=== PATIENT | female | born 1955 | race Caucasian/White ===

== ENCOUNTER 2020-11-23 17:38 | Emergency (ER) | payer MEDICARE, SELFPAY ==
[2020-11-23 17:39] VITALS: BP 177/100; PULSE 77; PULSE 82; RESP 16; TEMP 36.8; O2SAT 96; O2SAT 97; BMI 25.4
--- NOTE | 2020-11-23 18:20 | RAD_ITS ---
STUDY: X-RAY - RIGHT KNEE REASON FOR EXAM: Female, 65 years old. Pain after falling getting out of pool TECHNIQUE: 4 view(s) of the knee. COMPARISON: None. FINDINGS: Normal visualized distal femur. Normal visualized proximal tibia and fibula. Normal proximal tibiofibular articulation. Normal medial femorotibial compartment. Normal lateral femorotibial compartment. Normal patellofemoral articulation. There is a soft tissue prominence in the suprapatellar region suggesting a small volume joint effusion. The soft tissue structures are unremarkable. RAD/Knee 4 or More Views IMPRESSION: Small joint effusion. No demonstrated fracture. Electronically Signed: Eulailo Wray MD ([place]) at 18:42 EDT , Service support ,
--- NOTE | 2020-11-23 18:20 | ED.VIS.LOWEX ---
HPI History of Present Illness Chief Complaint: Lower Extremity Injury Informant: patient Narrative Narrative: Patient comes in with pain in the back of the knee and upper calf. She was in the pool playing ball. She jumped to push at the ball. She had sudden onset of sharp pain in the back of the knee and calf. It is hard for her to bear weight. No pain in the front. No chest pain or trouble breathing. No numbness tingling. She states her foot and toes to work just fine. Motion or pressing makes it worse. Fully extending the leg makes it worse. Weightbearing makes it worse. Ice rest makes it better. Patient denies any medical history. She denies any medications. She has no allergies. PFSH PFSH Home Medications tramadol 50 mg PO TID PRN 3 Days #10 tab 11/23/20 [Rx Last Taken Unknown] Allergy/AdvReac Type Severity Reaction Status Date / Time No Known Allergies Allergy Verified 11/23/20 17:42 Surgical History (Updated 11/23/20 @ 17:47 by Anjelica Abarca) History of hysterectomy Social History Smoking Status: Never smoker ROS ROS ED ROS Narrative Patient felt fine until this event occurred. Cardiovascular Cardiovascular: Denies chest pain Respiratory/Chest Respiratory/Chest: Denies cough or dyspnea Integumentary Denies rash Neurologic Neurologic: Denies paresthesias or weakness Hematologic/Lymphatic Hematologic/Lymphatic: Denies easy bleeding or easy bruising EXAM Physical Exam Const Vital Signs: 11/23/20 17:39 Temperature 98.2 F Temperature Source Temporal Pulse Rate 82 Respiratory Rate 16 Blood Pressure 177/100 H Blood Pressure Mean 125 Pulse Ox 97 Oxygen Delivery Method Room Air Positive well nourished and well developed General Appearance ED: well developed and NAD Chest Wall inspection of chest normal Resp normal respiratory effort Extremity Extremity Narrative: Patient has her knee partially bent with ice on the back. The knee itself has no effusion. No tenderness in the anterior lateral aspect of the knee. There is tenderness behind the knee and in the proximal calf. But there is no swelling. There is no cord. There is no distended veins. Achilles is fully intact by both palpation and Cartagena test. She has normal peripheral pulses and sensation. MDM MDM MDM Narrative Medical decision making narrative: X-rays of the knee show small effusion but no other process. Rechecked the patient. I will get her home on some meds for pain. Ice rest and follow-up. She already has crutches. I will give her referral to orthopedics. It certainly possible she has meniscal or other injury. However, her exam and history is most consistent with a plantaris tendon rupture. If she has continued pain, develop swelling chest pain or other issue she may need to be followed up for ultrasound. Radiography Diagnostic Testing: Radiology Impression Knee X-Ray 11/23/20 18:20 IMPRESSION: Small joint effusion. No demonstrated fracture. Electronically Signed: Eulalio Wray MD ([place]) at 18:42 EDT , Service support , Discharge Plan Triage Chief Complaint: Lower Extremity Injury ED Provider: Tung Guzman Dx/Rx/DC Orders Clinical Impression: Acute pain of right knee, Rupture of plantaris tendon Instructions: ED Knee Pain of Uncertain Cause Prescriptions: New tramadol 50 mg tablet 50 mg PO TID PRN (Reason: pain) 3 Days Qty: 10 RF: 0 Primary Care Provider: Wali Ariza Referrals: Wali Ariza MD [Primary Care Provider] - Jan Dee DO [STAFF PHYSICIAN] - 3-5 Days if not improving Disposition Disposition: Home, Self Care
== END 2020-11-23 19:07 | disposition home or self-care (01) ==
PROVIDERS: Emergency Provider Emergency Medicine; PCP Family Medicine
DX: S86.111A Strain of other muscle(s) and tendon(s) of posterior muscle group at lower leg level, right leg, initial encounter (principal); M25.561 Pain in right knee; X58.XXXA Exposure to other specified factors, initial encounter; Y93.89 Activity, other specified; Y92.34 Swimming pool (public) as the place of occurrence of the external cause; Y99.8 Other external cause status
CPT/HCPCS: 73564; 99282

== ENCOUNTER 2021-06-26 15:48 | Emergency (ER) | payer MEDICARE, SELFPAY ==
[2021-06-26 15:49] VITALS: BP 198/105; PULSE 88; RESP 16; TEMP 35.8; O2SAT 96; BMI 24.7
--- NOTE | 2021-06-26 16:49 | RAD_ITS ---
STUDY: X-RAY - LEFT KNEE REASON FOR EXAM: Female, 66 years old. pain twisted TECHNIQUE: 4 view(s) of the knee. COMPARISON: None. FINDINGS: Normal visualized distal femur. Normal visualized proximal tibia and fibula. Normal proximal tibiofibular articulation. There is no demonstrated fracture. Normal medial femorotibial compartment. Normal lateral femorotibial compartment. Normal patellofemoral articulation. There is no demonstrated joint effusion. The soft tissue structures are unremarkable. RAD/Knee 4 or More Views IMPRESSION: Normal x-ray examination of the knee. Electronically Signed: Chevy Tinajero MD at 18:14 EST ,
--- NOTE | 2021-06-26 19:16 | ED.VIS.LOWEX ---
HPI History of Present Illness Chief Complaint: Lower Extremity Injury Informant: patient Narrative Narrative: This patient slipped letting her dog out today. She slipped and landed firmly on her left foot. She felt something pop in the back of her left calf. She has pain in the proximal posterior calf on the left. She can move the foot up and down but it is painful. No chest pain trouble breathing. She never fell to the ground or hit her head. She is not on any medications at this time. She has not been on any steroids or fluoroquinolones. Rest makes it better and moving the foot or pressing on the calf makes it worse. [facility] Medical History Knee injury Home Medications NK 06/26/21 [History Last Taken Unknown] Allergy/AdvReac Type Severity Reaction Status Date / Time No Known Allergies Allergy Verified 06/26/21 15:49 Surgical History History of hysterectomy Social History Smoking Status: Never smoker ROS ROS ED Constitutional Constitutional ED: Denies fever(s) Gastrointestinal Gastrointestinal: Denies nausea or vomiting Musculoskeletal Musculoskeletal: Reports other Details: See history of present illness ; Denies back pain or neck pain Integumentary Denies Abrasions or rash Neurologic Neurologic: Denies paresthesias or weakness Hematologic/Lymphatic Hematologic/Lymphatic: Denies easy bleeding or easy bruising Allergic/Immunologic Allergic/Immunologic ED: Denies urticaria EXAM Physical Exam Const Vital Signs: 06/26/21 15:49 Temperature 96.4 F L Temperature Source Temporal Pulse Rate 88 Respiratory Rate 16 Blood Pressure 198/105 H Blood Pressure Mean 136 Pulse Ox 96 Oxygen Delivery Method Room Air Positive well nourished and well developed General Appearance ED: well developed and NAD HEENT normocephalic Resp normal respiratory effort Back/Spine Cervical Spine: Negative for cervical spine tenderness Thoracic Spine / Upper Back: Negative for thoracic spinal tenderness Lumbar Spine / Lower Back: Negative for lumbar spinal tenderness Extremity Extremity Narrative: The extremity looks normal. There is no asymmetry of size. She does have tenderness at the proximal aspect of the left calf. But no rash. Knee is not involved. There is no effusion. Achilles is actually fully intact to palpation and Cartagena test. Patient can plantarflex the left foot but this causes some discomfort. She does appear to have intact gastroc both medial and lateral heads. Neuro oriented x3 Sensorium / Orientation: alert Psych mental status grossly normal Skin Rashes: no rashes MDM MDM MDM Narrative Medical decision making narrative: Patient's x-ray shows no acute process. This was done per protocol. But she really has no bony tenderness or pain. Her exam and history is consistent with a plantaris tendon rupture. This should resolve and heal. [id number] meds ice elevation are appropriate. We discussed that if she has swelling or worsening pain or other concerns she may need further evaluation and could even need ultrasound or have the possibility of developing DVT. She states she had plantaris tendon rupture on the other leg in the past and was thinking that this was about the same. Radiography Diagnostic Testing: Clinical Impression(s) from Imaging Studies Knee X-Ray 06/26/21 16:49 IMPRESSION: Normal x-ray examination of the knee. Electronically Signed: Chevy Tinajero MD at 18:14 EST Reading Location ID and State: [facility] / [place] , Service support , Discharge Plan Triage Chief Complaint: Lower Extremity Injury ED Provider: Tung Guzman Dx/Rx/DC Orders Clinical Impression: Rupture of plantaris tendon Instructions: ED Muscle Strain, Extremity Prescriptions: No Action NK RF: 0 Primary Care Provider: Care Physician,No Primary Referrals: Jan Dee DO [STAFF PHYSICIAN] - 1 Week if not improving Care Physician,No Primary [Primary Care Provider] - Disposition Disposition: Home, Self Care
[2021-06-26 19:31] VITALS: PULSE 74; RESP 17; O2SAT 98
== END 2021-06-26 19:37 | disposition home or self-care (01) ==
PROVIDERS: Emergency Provider Emergency Medicine; Visit Provider Emergency Medicine
DX: S86.812A Strain of other muscle(s) and tendon(s) at lower leg level, left leg, initial encounter (principal); W01.0XXA Fall on same level from slipping, tripping and stumbling without subsequent striking against object, initial encounter; Y93.9 Activity, unspecified; Y92.9 Unspecified place or not applicable
CPT/HCPCS: 73564; 99282